=== PATIENT | male | born 1935 | race Caucasian/White ===

== ENCOUNTER → 2016-11-19 | Outpatient (CLI) | payer MEDICARE, OTHER ==
[~2016-11-19] MED LIST: ACIPHEX20 MG PO; ANTIVERT 25MG25 MG PO; ASCRIPTIN ENTER81 MG PO; ASPIRIN 32325 MG/TAB PO; ASPIRIN E.C. 8181 MG PO; AZULFIDINE500 MG PO; BACITRACIN Z500 U/GM TP; BENAZEPRIL PO; CALCIUM 500 + D1 TA1 PO; CALCIUM 600MG+D1 TAB PO; CIMZIA200 MG/ML SC; COLACE 100100 MG/CAP PO; CRESTOR20 MG PO; DIAZEPAM2 MG PO; DULERA1 AR1 IH; DUO-KAPS1 CAP PO; ERGOCALCIFER50000 IU PO; FAMOTIDINE PO; FLOMAX 0.40.4 MG/CAP PO; FLOMAX0.4 MG PO; FOLIC ACID 11 MG/TA1 PO; FOLIC ACID1 MG PO; INDOMETHACIN50 MG PO; IRON325 M1 PO; LIPITOR80 MG PO; LOPRESSOR 225 MG/TAB PO; LOTRISONE CREAM15 GM TP; METHOTREXA2.5 MG/TAB PO; METHOTREXATE2.5 M1 PO; MIRAPEX0.25 MG PO; MULTIPLE VITAMI1 CAP PO; NITROQUICK0.4 MG SL; NITROSTAT0.4 MG/TAB SL; NORCO 325 MG-51 TAB PO; OMEPRAZOLE20 MG PO; PLAVIX 75MG TAB75 MG PO; PRADAXA 150MG150 MG PO; PRAZOSIN HCL1 MG PO; PREDNISONE 5MG5 MG PO; PREVACID 30MG30 M1 PO; PROAIR HFA0.09 MG/AC IH; PYRIDIUM200 M1 PO; RANITIDINE150 MG PO; SIMVASTATIN40 MG PO; SIMVASTATIN80 MG PO; SPIRIVA RESPIMAT4 GM IH; TESTOSTERONE1 POW; TOPROL XL 25MG25 MG PO; TOPROL XL 50MG50 MG PO; TRIAMCINOLONE A15 G1 TP; TYLENOL 500MG500 MG PO; ULTRAM 50MG TAB50 MG PO; VICODIN 5/5001 UDTAB PO; VITAMIN C500 MG PO; VITAMIN D31000 IU PO; VOLTAREN GEL 1%1 TU TP; ZANTAC 150MG T150 MG PO; ZOCOR 40MG40 MG PO; [UNRECOGNIZED DRUG - CODE]; [UNRECOGNIZED DRUG - OTHER]; [UNRECOGNIZED DRUG - OTHER]
== END ==
LOC: COL.RAD 14:44
DX: I71.4 Abdominal aortic aneurysm, without rupture (principal); I73.89 Other specified peripheral vascular diseases; Z93.3 Colostomy status; D48.7 Neoplasm of uncertain behavior of other specified sites; N26.9 Renal sclerosis, unspecified; K82.8 Other specified diseases of gallbladder
CPT/HCPCS: Q9967

== ENCOUNTER 2017-05-14 08:10 | Day surgery (SDC) | payer MEDICARE, OTHER ==
[~2017-05-14] VITALS: Ht 172.7 cm; Wt 76.5 kg
[2017-05-14] VITALS (10 sets, daily range): BP systolic 109–160; BP diastolic 61–88; PULSE 58–74; TEMP 97.3–98.6
[~2017-05-14 08:10] MED LIST changes: -ASPIRIN E.C. 8181 MG PO; -BACITRACIN Z500 U/GM TP; -COLACE 100100 MG/CAP PO; -CRESTOR20 MG PO; -ERGOCALCIFER50000 IU PO; -LOTRISONE CREAM15 GM TP; -NORCO 325 MG-51 TAB PO; -PYRIDIUM200 M1 PO
[2017-05-14] MEDS ORDERED: TRIAMCINOLONE A15 G1 TP (09:48)
[2017-05-14] MEDS ORDERED: LOTRISONE CREAM15 GM TP (09:49)
[2017-05-14] MEDS ORDERED: CRESTOR20 MG PO (09:56)
[2017-05-14] MEDS ORDERED: ERGOCALCIFER50000 IU PO (09:58)
[2017-05-14] MEDS ORDERED: ASPIRIN E.C. 8181 MG PO (10:00)
[2017-05-15 02:18] VITALS: BP 149/89; PULSE 61; TEMP 98.3
[2017-05-15 06:35] VITALS: BP 146/73; PULSE 61; TEMP 98
[2017-05-15] MEDS ORDERED: BACITRACIN Z500 U/GM TP (12:00)
[2017-05-15] MEDS ORDERED: COLACE 100100 MG/CAP PO (12:01)
[2017-05-15] MEDS ORDERED: NORCO 325 MG-51 TAB PO (12:01)
[2017-05-15] MEDS ORDERED: PYRIDIUM200 M1 PO (12:02)
== END 2017-05-15 15:03 | disposition home or self-care (01) ==
LOC: SDCO 08:10 → SURG 12:40 → SDCO 05-15 15:03
DX: N13.8 Other obstructive and reflux uropathy (principal); N48.5 Ulcer of penis; N48.89 Other specified disorders of penis; I10 Essential (primary) hypertension; J44.9 Chronic obstructive pulmonary disease, unspecified; I25.10 Atherosclerotic heart disease of native coronary artery without angina pectoris; Z87.01 Personal history of pneumonia (recurrent); M06.9 Rheumatoid arthritis, unspecified; G89.29 Other chronic pain; Z85.038 Personal history of other malignant neoplasm of large intestine; N40.0 Benign prostatic hyperplasia without lower urinary tract symptoms; I51.9 Heart disease, unspecified; E78.00 Pure hypercholesterolemia, unspecified; Z95.0 Presence of cardiac pacemaker; Z95.5 Presence of coronary angioplasty implant and graft; Z96.659 Presence of unspecified artificial knee joint; Z80.9 Family history of malignant neoplasm, unspecified; Z82.49 Family history of ischemic heart disease and other diseases of the circulatory system
CPT/HCPCS: OP; A4315; A9284; J0690; J2250; J2704; J7120

== ENCOUNTER → 2019-03-28 | Outpatient (CLI) | payer MEDICARE, OTHER ==
[~2019-03-28] MED LIST changes: +ASPIRIN E.C. 8181 MG PO; +BACITRACIN Z500 U/GM TP; +COLACE 100100 MG/CAP PO; +CRESTOR20 MG PO; +ERGOCALCIFER50000 IU PO; +LOTRISONE CREAM15 GM TP; +NORCO 325 MG-51 TAB PO; +PYRIDIUM200 M1 PO
== END ==
LOC: COL.RAD 13:12
DX: Z01.812 Encounter for preprocedural laboratory examination (principal); I71.4 Abdominal aortic aneurysm, without rupture; I70.203 Unspecified atherosclerosis of native arteries of extremities, bilateral legs; K55.1 Chronic vascular disorders of intestine; Z96.641 Presence of right artificial hip joint; Z93.3 Colostomy status
CPT/HCPCS: Q9967

== ENCOUNTER → 2020-12-05 | Outpatient (CLI) | payer MEDICARE, OTHER ==
[2020-12-06 10:37] LABS: CALCIUM 9.7 mg/dL (8.4-10.2); CREATININE, serum 1.06 (0.66-1.25); POTASSIUM 4.4 mmol/L (3.4-5.0)
== END ==
LOC: ZCOL.LAB 15:00
PROVIDERS: Internal Medicine Interventional Cardiology
DX: Z01.812 Encounter for preprocedural laboratory examination (principal)